=== PATIENT | male | born 1975 | race Caucasian/White ===

== ENCOUNTER 2022-05-30 18:52 | Emergency (ER) | payer OTHER ==
[2022-05-30] MEDS ORDERED: Ondansetron 4 MG/2 ML SDV IVPUSH ONE (19:17)
[2022-05-30] MEDS: Sodium Chloride 0.9% 1,000 ML IV SCH ×2 (19:20→19:41)
[2022-05-30 19:28] LABS: ESTIMATED GFR 93 mL/min (>60)
[2022-05-30] MEDS ORDERED: Iopamidol 755 Mg/ML 100 ML Bottle IV ONE (19:52)
[2022-05-30] MEDS ORDERED: Aspirin 81 MG Tab.Chew PO ONE (23:15)
== END 2022-05-30 23:21 | disposition home or self-care (01) ==
LOC: FB.ED 18:52
DX: R20.2 Paresthesia of skin (principal); R20.0 Anesthesia of skin; Z72.0 Tobacco use
CPT/HCPCS: 36415; 70450; 70496; 70498; 80053; 81001; 82607; 83735; 84100; 85025; 85610; 86140; 93005; 96361; 96374; 99284; A9270; J2405; J7030; Q9967